=== PATIENT | male | born 1980 | race Caucasian/White ===

== ENCOUNTER 2019-04-28 11:48 | Emergency (ER) | payer MEDICAID ==
[2019-04-28] MEDS ORDERED: Zofran 4 MG/2 ML VIAL IV ONE (12:19)
[2019-04-28] MEDS ORDERED: Sodium Chloride 0.9% 1000 ML 1,000 ML IV STA (12:19)
[2019-04-28] MEDS ORDERED: Zofran 4 MG/2 ML VIAL ONE (12:26)
[2019-04-28] MEDS ORDERED: Sodium Chloride 0.9% 1000 ML 1,000 ML ONE (12:26)
[2019-04-28 13:06] LABS: BASOPHIL % 0.2 % (0.0-0.4); Basophil (Absolute #) 0.01 (0-0.4); Eosinophil % 2.7 % (0.00-5.0); Eosinophil (Absolute #) 0.13 (0-0.5); Granulocyte Absolute (ANC) 3.13 (1.4-6.9); Granulocytes % 65.5 % (36.0-66.0); Hematocrit 45.7 % (42-50); Hemoglobin 15.2 gm/dl (12.5-18.0); Lymphocyte (Absolute #) 1.19 (1.0-4.6); Lymphocytes % 24.9 % (24.0-44.0); Mean Cell Volume 91.8 fl (78-100); Mean Corpuscular Hemoglobin 30.5 pg (26-32); Mean Corpuscular Hgb Concent. 33.3 g/dl (32-36); Mean Platelet Volume 12.7 fl (6-9.5); Monocyte (Absolute #) 0.32 (0.0-1.3); Monocytes % 6.7 % (0.0-12.0); Platelet Count 160 K/mm3 (150-450); Red Blood Count 4.98 M/mm3 (4.1-5.6); White Blood Count 4.8 K/mm3 (4.0-10.5)
[2019-04-28 13:22] LABS: Appearance CLEAR (CLEAR); Bilirubin NEGATIVE (NEGATIVE); Blood NEGATIVE Ery/ul (0-5); Glucose NEGATIVE (NEGATIVE); Ketones TRACE (NEGATIVE); Leukocyte Esterase NEGATIVE (NEGATIVE); Mucus SLIGHT /HPF (NEGATIVE); Nitrite NEGATIVE (NEGATIVE); Protein,Urine Dip 30 (Negative); Specific Gravity 1.028 (1.005-1.025); Urobilinogen NEGATIVE mg/dL (0-1)
[2019-04-28 13:23] LABS: ALBUMIN 3.9 g/dL (3.5-5.0); ALKALINE PHOSPHATASE 59 U/L (38-126); ANION GAP 9.6 MEQ/L (5-15); BLOOD UREA NITROGEN 20 mg/dL (9-20); Bacteria NONE SEEN /HPF (NEGATIVE); CHLORIDE 106 mmol/L (98-107); Carbon Dioxide 31 mmol/L (22-30); Creatinine 1 1.02 mg/dL (0.66-1.25); Glucose 124 mg/dL (74-106); SGOT/AST 26 U/L (17-59); SGPT/ALT 23 U/L (0-50); SODIUM 143 mmol/L (137-145)
[2019-04-28 15:43] VITALS: BP 114/78; PULSE 72; O2SAT 94
--- NOTE | 2019-04-28 15:57 | ERPHSYRPT ---
- History of Present Illness Source: patient Exam Limitations: no limitations Patient Subjective Stated Complaint: vomiting Triage Nursing Assessment: Patient brought back to ED via w/c and transferred to bed per self. Patient A+O X 3. Patient's skin pale, cool and diaphoretic. Patient complains of vomiting X 1. Patient complains of nausea. Patient states he donated plasma at 0800 this am. Patient states he started feeling bad once he got home. Patient's abdomen round and soft with BS X4. Patient denies pain or discomfort. Physician History: Pt is a 38 y/o male that donated plasma today, and post procedure he syncopized. Pt states, was vomiting as well. He thought that he is having a seizure and came to the ER for a work up. Pt is not post ictal, and is A&O and conversive. No SOB or wheeze. No F/C/S. No dysuria, frequency or urgency. Pt did not eat or drink today. Timing/Duration: today Severity: mild Associated Symptoms: nausea, vomiting, syncope Allergies/Adverse Reactions: No Known Drug Allergies Allergy (Unverified 04/28/19 11:55) Home Medications: No Reportable Medications [No Reported Medications] 04/28/19 [History] Hx Influenza Vaccination/Date Given: No Hx Pneumococcal Vaccination/Date Given: No Immunizations Up to Date: Yes - Review of Systems Constitutional: No Fever, No Chills Eyes: No Symptoms Ears, Nose, & Throat: No Symptoms Respiratory: No Cough, No Dyspnea Cardiac: No Chest Pain, No Edema, No Syncope Abdominal/Gastrointestinal: No Abdominal Pain, No Nausea, No Vomiting, No Diarrhea Genitourinary Symptoms: No Dysuria Musculoskeletal: No Back Pain, No Neck Pain Neurological: No Dizziness, No Focal Weakness, No Sensory Changes - Past Medical History Pertinent Past Medical History: No Neurological History: No Pertinent History ENT History: No Pertinent History Cardiac History: No Pertinent History Respiratory History: No Pertinent History Endocrine Medical History: No Pertinent History Musculoskeletal History: No Pertinent History GI Medical History: No Pertinent History History: No Pertinent History Psycho-Social History: No Pertinent History Male Reproductive Disorders: No Pertinent History - Past Surgical History Past Surgical History: Yes Neuro Surgical History: No Pertinent History Cardiac: No Pertinent History Respiratory: No Pertinent History Gastrointestinal: No Pertinent History Genitourinary: No Pertinent History Musculoskeletal: Orthopedic Surgery Other Surgical History: Right thumb 1994 - Social History Smoking Status: Current every day smoker How long have you smoked: 15 years Exposure to second hand smoke: Yes Drug Use: none Patient Lives Alone: No - Nursing Vital Signs Nursing Vital Signs: Initial Vital Signs Temperature 97.5 F 04/28/19 11:55 Pulse Rate 76 04/28/19 11:55 Respiratory Rate 18 04/28/19 11:55 Blood Pressure 118/95 04/28/19 11:55 O2 Sat by Pulse Oximetry 93 L 04/28/19 11:55 Pain Scale Pain Intensity 0 - Physical Exam General Appearance: no apparent distress, alert Eye Exam: PERRL/EOMI, eyes nml inspection Ears, Nose, Throat Exam: normal ENT inspection, TMs normal, pharynx normal, moist mucous membranes Neck Exam: normal inspection, non-tender, supple, full range of motion Respiratory Exam: normal breath sounds, lungs clear, No respiratory distress Cardiovascular Exam: regular rate/rhythm, normal heart sounds, normal peripheral pulses Gastrointestinal/Abdomen Exam: soft, normal bowel sounds, No tenderness, No mass Back Exam: normal inspection, normal range of motion, No CVA tenderness, No vertebral tenderness Extremity Exam: normal inspection, normal range of motion, pelvis stable Neurologic Exam: alert, oriented x 3, cooperative, normal mood/affect, nml cerebellar function, nml station & gait, sensation nml, No motor deficits SpO2: 94 - Course Nursing assessment & vital signs reviewed: Yes Ordered Tests: Active Orders 24 hr Category Date Time Status CBC W DIFF Stat Lab 04/28/19 12:01 Completed CMP Stat Lab 04/28/19 12:01 Completed Lactic Acid Stat Lab 04/28/19 12:28 Completed UA W/RFX UR CULTURE Stat Lab 04/28/19 12:01 Completed Medication Summary Discontinued Medications Generic Name Dose Route Start Last Admin Trade Name Freq PRN Reason Stop Dose Admin Sodium Chloride 1,000 mls @ 999 mls/hr 04/28/19 12:19 04/28/19 13:29 Sodium Chloride 0.9% 1000 Ml IV 04/28/19 13:19 Infused .Q1H1M STA Infusion Sodium Chloride Confirm 04/28/19 12:26 Sodium Chloride 0.9% 1000 Ml Administered 04/28/19 12:27 Dose 1,000 mls @ ud .ROUTE .STK-MED ONE Ondansetron HCl 4 mg 04/28/19 12:19 04/28/19 12:28 Zofran 4 Mg/2 Ml Vial IV 04/28/19 12:20 4 mg STAT ONE Administration Ondansetron HCl Confirm 04/28/19 12:26 Zofran 4 Mg/2 Ml Vial Administered 04/28/19 12:27 Dose 4 mg .ROUTE .STK-MED ONE Lab/Rad Data: Laboratory Result Diagrams 04/28/19 12:01 04/28/19 12:01 Laboratory Results 04/28/19 04/28/19 04/28/19 Range/Units 12:28 12:01 12:01 WBC 4.8 (4.0-10.5) K/mm3 RBC 4.98 (4.1-5.6) M/mm3 Hgb 15.2 (12.5-18.0) gm/dl Hct 45.7 (42-50) % MCV 91.8 (78-100) fl MCH 30.5 (26-32) pg MCHC 33.3 (32-36) g/dl RDW 13.0 (11.5-14.0) % Plt Count 160 (150-450) K/mm3 MPV 12.7 H (6-9.5) fl Gran % 65.5 (36.0-66.0) % Eos # (Auto) 0.13 (0-0.5) Absolute Lymphs (auto) 1.19 (1.0-4.6) Absolute Monos (auto) 0.32 (0.0-1.3) Lymphocytes % 24.9 (24.0-44.0) % Monocytes % 6.7 (0.0-12.0) % Eosinophils % 2.7 (0.00-5.0) % Basophils % 0.2 (0.0-0.4) % Absolute Granulocytes 3.13 (1.4-6.9) Basophils # 0.01 (0-0.4) Sodium 143 (137-145) mmol/L Potassium 4.0 (3.5-5.1) mmol/L Chloride 106 (98-107) mmol/L Carbon Dioxide 31 H (22-30) mmol/L Anion Gap 9.6 (5-15) MEQ/L BUN 20 (9-20) mg/dL Creatinine 1.02 (0.66-1.25) mg/dL Estimated GFR > 60.0 ML/MIN Glucose 124 H (74-106) mg/dL Lactic Acid 1.3 (0.4-2.0) Calcium 9.0 (8.4-10.2) mg/dL Total Bilirubin 0.40 (0.2-1.3) mg/dL AST 26 (17-59) U/L ALT 23 (0-50) U/L Alkaline Phosphatase 59 (38-126) U/L Serum Total Protein 7.0 (6.3-8.2) g/dL Albumin 3.9 (3.5-5.0) g/dL Urine Color (YELLOW) Urine Appearance (CLEAR) Urine pH (5-6) Ur Specific [place] (1.005-1.025) Urine Protein (Negative) Urine Ketones (NEGATIVE) Urine Blood (0-5) Hua/ul Urine Nitrite (NEGATIVE) Urine Bilirubin (NEGATIVE) Urine Urobilinogen (0-1) mg/dL Ur Leukocyte Esterase (NEGATIVE) Urine WBC (Auto) (0-5) /HPF Urine RBC (Auto) (0-2) /HPF U Epithel Cells (Auto) (FEW) /HPF Urine Bacteria (Auto) (NEGATIVE) /HPF Other Casts (Auto) (NEGATIVE) /LPF Urine Mucus (Auto) (NEGATIVE) /HPF Urine Culture Reflexed (NO) Urine Glucose (NEGATIVE) mg/dL Slides for Path Review YES 04/28/19 Range/Units 12:01 WBC (4.0-10.5) K/mm3 RBC (4.1-5.6) M/mm3 Hgb (12.5-18.0) gm/dl Hct (42-50) % MCV (78-100) fl MCH (26-32) pg MCHC (32-36) g/dl RDW (11.5-14.0) % Plt Count (150-450) K/mm3 MPV (6-9.5) fl Gran % (36.0-66.0) % Eos # (Auto) (0-0.5) Absolute Lymphs (auto) (1.0-4.6) Absolute Monos (auto) (0.0-1.3) Lymphocytes % (24.0-44.0) % Monocytes % (0.0-12.0) % Eosinophils % (0.00-5.0) % Basophils % (0.0-0.4) % Absolute Granulocytes (1.4-6.9) Basophils # (0-0.4) Sodium (137-145) mmol/L Potassium (3.5-5.1) mmol/L Chloride (98-107) mmol/L Carbon Dioxide (22-30) mmol/L Anion Gap (5-15) MEQ/L BUN (9-20) mg/dL Creatinine (0.66-1.25) mg/dL Estimated GFR ML/MIN Glucose (74-106) mg/dL Lactic Acid (0.4-2.0) Calcium (8.4-10.2) mg/dL Total Bilirubin (0.2-1.3) mg/dL AST (17-59) U/L ALT (0-50) U/L Alkaline Phosphatase (38-126) U/L Serum Total Protein (6.3-8.2) g/dL Albumin (3.5-5.0) g/dL Urine Color YELLOW (YELLOW) Urine Appearance CLEAR (CLEAR) Urine pH 5.0 (5-6) Ur Specific [place] 1.028 (1.005-1.025) Urine Protein 30 (Negative) Urine Ketones TRACE (NEGATIVE) Urine Blood NEGATIVE (0-5) Hua/ul Urine Nitrite NEGATIVE (NEGATIVE) Urine Bilirubin NEGATIVE (NEGATIVE) Urine Urobilinogen NEGATIVE (0-1) mg/dL Ur Leukocyte Esterase NEGATIVE (NEGATIVE) Urine WBC (Auto) NONE (0-5) /HPF Urine RBC (Auto) NONE (0-2) /HPF U Epithel Cells (Auto) NONE (FEW) /HPF Urine Bacteria (Auto) NONE SEEN (NEGATIVE) /HPF Other Casts (Auto) NEGATIVE (NEGATIVE) /LPF Urine Mucus (Auto) SLIGHT (NEGATIVE) /HPF Urine Culture Reflexed NO (NO) Urine Glucose NEGATIVE (NEGATIVE) mg/dL Slides for Path Review - Progress Progress: improved Progress Note: 04/28/19 15:58 Pt was seen and examined. Lab work were all normal. UA is normal. IVF were given as well as Zofran. Pt is improved and is ready for d/c. He should f/u with his PCP. Will see patient in: office Counseled pt/family regarding: need for follow-up - Departure Departure Disposition: Home Clinical Impression: Syncope Condition: Stable Critical Care Time: No Referrals: DOCTOR,NO FAMILY [Primary Care Provider] - Additional Instructions: Pt should keep himself hydrated. He should f/u with PCP.
== END 2019-04-28 16:04 | disposition home or self-care (01) ==
LOC: ED 11:48
DX: R55 Syncope and collapse (principal)
CPT/HCPCS: 36000; 36415; 80053; 81001; 83605; 85025; 96360; 96374; 99284; J2405

== ENCOUNTER 2019-06-06 15:31 | Emergency (ER) | payer MEDICAID | END 2019-06-06 16:51 | disposition home or self-care (01) | LOC: ED 15:31 ==

== ENCOUNTER 2019-07-02 12:12 | Emergency (ER) | payer MEDICAID, OTHER ==
--- NOTE | 2019-07-02 12:38 | ERPHSYRPT ---
- History of Present Illness Source: patient, family Exam Limitations: no limitations Physician History: patient has a chronic right knee pain for more than 8 years. He states that he has had it aspirated few times. worsening of the right knee pain with swelling since yesterday. Patient thinks it is the fluid. Pain gets worse with movement of the right knee. There's little bit of a progressed. Patient normally takes ibuprofen but cannot take it right now Method of Injury: unknown Occurred: yesterday Quality: constant Severity of Pain-Max: moderate Severity of Pain-Current: severe Lower Extremities Pain: knee: right Modifying Factors: Improves With: movement, rest Associated Symptoms: unable to bear weight Allergies/Adverse Reactions: No Known Drug Allergies Allergy (Verified 07/02/19 12:29) Hx Tetanus, Diphtheria Vaccination/Date Given: Yes Hx Influenza Vaccination/Date Given: No Hx Pneumococcal Vaccination/Date Given: No - Review of Systems Constitutional: No Fever, No Chills Eyes: No Symptoms Ears, Nose, & Throat: No Symptoms Respiratory: No Cough, No Dyspnea Cardiac: No Chest Pain, No Edema, No Syncope Abdominal/Gastrointestinal: No Abdominal Pain, No Nausea, No Vomiting, No Diarrhea Genitourinary Symptoms: No Dysuria Musculoskeletal: Joint Pain, Joint Swelling, Other (right knee-painful, tender, swollen, painful range of motion), No Back Pain, No Neck Pain Skin: No Rash Neurological: No Dizziness, No Focal Weakness, No Sensory Changes Psychological: No Symptoms Endocrine: No Symptoms All Other Systems: Reviewed and Negative - Past Medical History Pertinent Past Medical History: No Neurological History: No Pertinent History ENT History: No Pertinent History Cardiac History: No Pertinent History Respiratory History: No Pertinent History Endocrine Medical History: No Pertinent History Musculoskeletal History: No Pertinent History GI Medical History: No Pertinent History History: No Pertinent History Psycho-Social History: No Pertinent History Male Reproductive Disorders: No Pertinent History - Past Surgical History Past Surgical History: Yes Neuro Surgical History: No Pertinent History Cardiac: No Pertinent History Respiratory: No Pertinent History Gastrointestinal: No Pertinent History Genitourinary: No Pertinent History Musculoskeletal: Orthopedic Surgery Other Surgical History: Right thumb 1995 - Social History Smoking Status: Current every day smoker How long have you smoked: 15 years Exposure to second hand smoke: Yes Drug Use: none Patient Lives Alone: No - Nursing Vital Signs Nursing Vital Signs: Initial Vital Signs Temperature 98.8 F 07/02/19 12:20 Pulse Rate 92 H 07/02/19 12:20 Respiratory Rate 16 07/02/19 12:20 Blood Pressure 141/86 07/02/19 12:20 O2 Sat by Pulse Oximetry 96 07/02/19 12:20 Pain Scale Pain Intensity 8 - Physical Exam General Appearance: alert Eyes, Ears, Nose, Throat Exam: moist mucous membranes Neck Exam: non-tender, supple Cardiovascular/Respiratory Exam: chest non-tender, normal breath sounds, regular rate/rhythm, no respiratory distress Gastrointestinal/Abdominal Exam: non-tender, guarding Back Exam: normal inspection, No vertebral tenderness Knees Exam: right knee: joint effusion, pain, soft tissue tenderness, swelling ( and and), other (right knee-painful, tender, swollen, painful range of motion, normal distal NV function), bilateral knee: no evidence of injury (is a) Neuro/Tendon Exam: normal sensation, normal motor functions Mental Status Exam: alert, oriented x 3, cooperative Skin Exam: normal color, warm, dry Procedures - Additional Procedures Progress: right knee aspiration done under aseptic precaution. 60 mL of fluid aspirated and sent for examination. I injected the final count of 1% lidocaine and a 10 mg of Decadron in the right knee. Patient tolerated procedure well. No complications - Course Nursing assessment & vital signs reviewed: Yes Ordered Tests: Active Orders 24 hr Category Date Time Status Crutches STAT Care 07/02/19 14:25 Active Medication Summary Discontinued Medications Generic Name Dose Route Start Last Admin Trade Name Morgan PRN Reason Stop Dose Admin Dexamethasone Sodium Phosphate 10 mg 07/02/19 14:10 07/02/19 14:27 Decadron 4 Mg Inj IJ 07/02/19 14:11 10 mg STAT ONE Administration Dexamethasone Sodium Phosphate Confirm 07/02/19 14:10 Decadron 10mg Inj. Administered 07/02/19 14:11 Dose 10 mg .ROUTE .STK-MED ONE Lidocaine HCl 5 ml 07/02/19 14:10 07/02/19 14:25 Xylocaine 1% Hcl 20 Ml Mdv IJ 07/02/19 14:11 5 ml STAT ONE Administration Lidocaine HCl Confirm 07/02/19 14:10 Xylocaine 1% Hcl 20 Ml Mdv Administered 07/02/19 14:11 Dose 1 ml .ROUTE .STK-MED ONE - Progress Progress: improved Discussed with DrGeorgina: Roberta Will see patient in: office Counseled pt/family regarding: need for follow-up (need to see ortho LELA) - Departure Departure Disposition: Home Clinical Impression: Knee internal derangement Condition: Good Critical Care Time: No Referrals: BISHOP PEMBERTON MD [Primary Care Provider] - Instructions: Knee Sprain (DC), Knee Pain (DC) Additional Instructions: See ortho LELA Forms: Work/School Release Form
[2019-07-02 14:04] VITALS: BP 130/79; PULSE 87; O2SAT 98
[2019-07-02] MEDS ORDERED: DECADRON 10MG INJ. ONE (14:10)
[2019-07-02] MEDS ORDERED: XYLOCAINE 1% HCL 20 ML MDV IJ ONE (14:10)
[2019-07-02] MEDS ORDERED: XYLOCAINE 1% HCL 20 ML MDV ONE (14:10)
[2019-07-02] MEDS ORDERED: Decadron 4 MG INJ IJ ONE (14:10)
== END 2019-07-02 15:01 | disposition home or self-care (01) ==
LOC: ED 12:12
DX: M23.91 Unspecified internal derangement of right knee (principal); M25.561 Pain in right knee
CPT/HCPCS: 20610; 89050; 89051; 89060; 96372; 99284; J1100; L1830

== ENCOUNTER 2019-08-13 21:47 | Emergency (ER) | payer OTHER ==
[2019-08-13 22:00] VITALS: O2SAT 97
--- NOTE | 2019-08-13 22:00 | ERPHSYRPT ---
- History of Present Illness Time Seen by Provider: 08/13/19 21:50 Historian: patient Exam Limitations: no limitations Physician History: Patient has lower left anterior chest pain after a mild injury 4 days ago after reaching to grab something, causing him to fall onto his truck bed onto the left chest. Timing/Duration: day(s) (4) Activities at Onset: activity Quality: sharpness Location: other (lower anterior lateral chest wall) Chest Pain Radiation: no radiation Severity of Pain-Max: moderate Severity of Pain-Current: moderate Modifying Factors: Improves With: rest. Worsens With: breathing, movement, palpation, change in position Associated Symptoms: No nausea, No vomiting, No palpitations, No heartburn, No abdominal pain, No shortness of breath, No cough, No hurts to breathe, No diaphoresis, No chills, No fever, No fatigue, No weakness, No swelling/lump in chest, No syncope, No rash, No headache, No dizziness, No edema, No back pain Prior Chest Pain/Cardiac Workup: no prior chest pain Nitro Today/Relief: no nitro taken today Aspirin Treatment Today: no aspirin today Allergies/Adverse Reactions: No Known Drug Allergies Allergy (Verified 08/13/19 22:00) Hx Tetanus, Diphtheria Vaccination/Date Given: Yes Hx Influenza Vaccination/Date Given: No Hx Pneumococcal Vaccination/Date Given: No - Review of Systems Constitutional: No Fever, No Chills, No Fatigue Eyes: No Eye Pain, No Vision Changes Ears, Nose, & Throat: No Mouth Swelling, No Throat Swelling, No Painful Swallowing Respiratory: No Cough, No Dyspnea, No Dyspnea on Exertion (YING) Cardiac: No Edema, No Palpitations, No Syncope Abdominal/Gastrointestinal: No Abdominal Pain, No Nausea, No Vomiting, No Hematemesis, No Hematochezia, No Melena Genitourinary Symptoms: No Dysuria, No Frequency, No Hematuria, No Flank Pain Musculoskeletal: No Back Pain, No Neck Pain Skin: No Pruritis, No Rash Neurological: No Focal Weakness, No Headache, No Lethargy, No Parasthesia Psychological: No Anxiety Endocrine: No Polydipsia, No Excessive Sweating Hematologic/Lymphatic: No Easy Bleeding, No Easy Bruising All Other Systems: Reviewed and Negative - Past Medical History Pertinent Past Medical History: No Neurological History: No Pertinent History ENT History: No Pertinent History Cardiac History: No Pertinent History Respiratory History: No Pertinent History Endocrine Medical History: No Pertinent History Musculoskeletal History: No Pertinent History GI Medical History: No Pertinent History History: No Pertinent History Psycho-Social History: No Pertinent History Male Reproductive Disorders: No Pertinent History Other Medical History: right knee swelling - Past Surgical History Past Surgical History: Yes Neuro Surgical History: No Pertinent History Cardiac: No Pertinent History Respiratory: No Pertinent History Gastrointestinal: No Pertinent History Genitourinary: No Pertinent History Musculoskeletal: Orthopedic Surgery Other Surgical History: Right thumb 1994 - Social History Smoking Status: Current every day smoker How long have you smoked: 15 years Exposure to second hand smoke: Yes Drug Use: none Patient Lives Alone: No - Nursing Vital Signs Nursing Vital Signs: Initial Vital Signs Temperature 98 F 08/13/19 21:51 Respiratory Rate 82 H 08/13/19 21:51 Blood Pressure 151/82 08/13/19 21:51 O2 Sat by Pulse Oximetry 97 08/13/19 21:51 Pain Scale Pain Intensity 8 - Physical Exam General Appearance: no apparent distress, alert Eye Exam: PERRL/EOMI, eyes nml inspection, No scleral icterus Ears, Nose, Throat Exam: pharynx normal, moist mucous membranes, No pharyngeal erythema, No tonsillar exudate Neck Exam: normal inspection, non-tender, supple, full range of motion, No meningismus, No mass, No Brudzinski, No limited range of motion, No lymphadenopathy, No midline tenderness Respiratory Exam: normal breath sounds, chest tenderness (point tenderness to the left lower anterior chest, no creptious or subcutaneous emphysema appreciated), lungs clear, airway intact, No respiratory distress, No accessory muscle use, No prolonged expirations, No crackles/rales, No rhonchi, No wheezing , No stridor Cardiovascular Exam: regular rate/rhythm, normal heart sounds, normal peripheral pulses, capillary refill <2 sec Gastrointestinal/Abdomen Exam: soft, normal bowel sounds, No tenderness, No distention, No guarding, No ecchymosis, No pulsatile mass, No rebound Back Exam: normal inspection, normal range of motion, No CVA tenderness, No vertebral tenderness, No rash Extremity Exam: normal inspection, normal range of motion, pelvis stable, No contusions, No deformities, No lacerations, No penetrations, No marcel's sign, No swelling Neurologic Exam: alert, oriented x 3, cooperative, saw man II-XII nml as tested, normal mood/affect, nml cerebellar function, sensation nml, No motor deficits Skin Exam: normal color, warm, dry, No rash, No petechiae, No cyanosis SpO2 Interpretation: normal O2 Delivery: Room Air - Radiology Exams Chest X-ray Interpretation: Interpreted by me, Reviewed by me, Negative, No Fracture, No Pneumonia, No Pneumothorax, Nml Alignment, Nml Heart Size, No Infiltrates, Nml Mediastinum Ordered Tests: Active Orders 24 hr Category Date Time Status CHEST 1 VIEW (PORTABLE) Stat Exams 08/13/19 22:00 Taken Incentive Spirometry ONCE RT 08/13/19 22:01 Completed Medication Summary Discontinued Medications Generic Name Dose Route Start Last Admin Trade Name Morgan PRN Reason Stop Dose Admin Hydrocodone Bitart/Acetaminophen 1 tab 08/13/19 22:01 08/13/19 22:06 [place] 5/325 Mg PO 08/13/19 22:02 1 tab STAT ONE Administration Hydrocodone Bitart/Acetaminophen Confirm 08/13/19 22:04 [place] 5/325 Mg Administered 08/13/19 22:05 Dose 1 tab .ROUTE .STK-MED ONE Ketorolac Tromethamine 60 mg 08/13/19 22:02 08/13/19 22:05 Toradol 30 Mg Injection IM 08/13/19 22:03 60 mg STAT ONE Administration Ketorolac Tromethamine Confirm 08/13/19 22:04 Toradol 30 Mg Injection Administered 08/13/19 22:05 Dose 30 mg .ROUTE .STK-MED ONE Ketorolac Tromethamine Confirm 08/13/19 22:07 Toradol 30 Mg Injection Administered 08/13/19 22:08 Dose 30 mg .ROUTE .STK-MED ONE - Progress Progress: improved Air Movement: good Progress Note: 08/13/19 22:31 Pain has decreased from an 8/10 to a 5/10. Equal breath sounds bilaterally, no respiratory distress. 08/13/19 22:32 Blood pressure improved to normal range with better pain control. Blood Culture(s) Obtained: No Antibiotics given: No Counseled pt/family regarding: lab results, diagnosis, need for follow-up, rad results - Departure Departure Disposition: Home Clinical Impression: Elevated blood pressure reading without diagnosis of hypertension Contusion of left chest wall Qualifiers: Encounter type: initial encounter Qualified Code(s): S20.212A - Contusion of left front wall of thorax, initial encounter Condition: Good Critical Care Time: No Referrals: BISHOP PEMBERTON MD [Primary Care Provider] - Follow Up with PCP/3 days Instructions: Bruised Rib, DASH Diet Prescriptions: Etodolac 400 mg [Lodine 400 mg] 400 mg PO BID PRN PRN #20 tablet PRN Reason: Pain
[2019-08-13] MEDS ORDERED: NORCO 5/325 MG PO ONE (22:01)
[2019-08-13] MEDS ORDERED: TORAdol 30 mg Injection IM ONE (22:02)
[2019-08-13] MEDS ORDERED: TORAdol 30 mg Injection ONE ×2 (22:04→22:07)
[2019-08-13] MEDS ORDERED: NORCO 5/325 MG ONE (22:04)
[2019-08-13 22:32] VITALS: BP 114/80; PULSE 76
--- NOTE | 2019-08-14 07:51 | XRAY ---
Indication: Left-sided pain following injury 4 days ago. Comparison: None Portable chest demonstrates normal heart and lungs. Bony thorax intact.
== END 2019-08-13 22:47 | disposition home or self-care (01) ==
LOC: ED 21:47
DX: S20.212A Contusion of left front wall of thorax, initial encounter (principal); R03.0 Elevated blood-pressure reading, without diagnosis of hypertension; W01.198A Fall on same level from slipping, tripping and stumbling with subsequent striking against other object, initial encounter
CPT/HCPCS: 71045; 96372; 99284; 99291; J1885; A9270-GY

== ENCOUNTER 2020-03-12 21:12 | Emergency (ER) | payer OTHER ==
[2020-03-12] MEDS ORDERED: Pepcid 20 MG PO ONE (21:57)
[2020-03-12] MEDS ORDERED: BENADRYL 50 MG/ML IM ONE (21:57)
[2020-03-12] MEDS ORDERED: solu-MEDROL 125 MG IM ONE (21:57)
--- NOTE | 2020-03-12 22:11 | ERPHSYRPT ---
- History of Present Illness Time Seen by Provider: 03/12/20 21:44 Source: patient Exam Limitations: no limitations Patient Subjective Stated Complaint: L cheek/jaw swelling Triage Nursing Assessment: pt to ED c/o L jaw and cheek swelling, states was weed eating and had a clam come up and hit him in the face. swelling began afterwards. allergic to shellfish. no diff breathing or swallowing noted. no swelling in throat. Physician History: 39 years old male allergic to shellfish was weed eating when a clam hit on the left face earlier this afternoon all later on started to have some swelling itching and burning sensation on the left side of the face with heaviness. Patient reports having similar symptoms with exposure to shellfish and related things in the past. Denies any tongue swelling, scratchiness in the throat, choking sensation or difficulty breathing. Timing/Duration: today, sudden, worse Severity: moderate Modifying Factors: Improves With: nothing Associated Symptoms: denies symptoms Allergies/Adverse Reactions: shellfish derived Allergy (Mild, Verified 03/12/20 21:47) Difficulty Swallowing swollen tongue Home Medications: Dextroamphetamine/Amphetamine [Adderall 10 mg Tablet] 10 mg PO BID PRN 03/12/20 [History] Hx Tetanus, Diphtheria Vaccination/Date Given: No Hx Influenza Vaccination/Date Given: No Hx Pneumococcal Vaccination/Date Given: No Immunizations Up to Date: No Travel Risk - International Travel Have you traveled outside of the country in past 3 weeks: No Have you or anyone close to you been diagnosed with or: No Do your reside in a community with a known COVID-19 case?: Yes If Yes where:: [place] - Coronavirus Screening Has patient experienced Coronavirus symptoms: No - Review of Systems Constitutional: No Symptoms Eyes: No Symptoms Ears, Nose, & Throat: Other Respiratory: No Symptoms Cardiac: No Symptoms Abdominal/Gastrointestinal: No Symptoms Genitourinary Symptoms: No Symptoms Musculoskeletal: No Symptoms Skin: Rash Neurological: No Symptoms Psychological: No Symptoms Endocrine: No Symptoms Hematologic/Lymphatic: No Symptoms Immunological/Allergic: No Symptoms - Past Medical History Pertinent Past Medical History: No Neurological History: No Pertinent History ENT History: No Pertinent History Cardiac History: No Pertinent History Respiratory History: No Pertinent History Endocrine Medical History: No Pertinent History Musculoskeletal History: No Pertinent History GI Medical History: No Pertinent History History: No Pertinent History Psycho-Social History: No Pertinent History Male Reproductive Disorders: No Pertinent History Other Medical History: right knee swelling - Past Surgical History Past Surgical History: Yes Neuro Surgical History: No Pertinent History Cardiac: No Pertinent History Respiratory: No Pertinent History Gastrointestinal: No Pertinent History Genitourinary: No Pertinent History Musculoskeletal: Orthopedic Surgery Male Surgical History: No Pertinent History Other Surgical History: Right thumb 1994 - Social History Smoking Status: Current every day smoker How long have you smoked: 15 years Exposure to second hand smoke: Yes Drug Use: none Patient Lives Alone: No - Nursing Vital Signs Nursing Vital Signs: Initial Vital Signs Temperature 97.9 F 03/12/20 21:36 Pulse Rate 78 03/12/20 21:36 Respiratory Rate 18 03/12/20 21:36 Blood Pressure 143/85 03/12/20 21:36 O2 Sat by Pulse Oximetry 98 03/12/20 21:36 Pain Scale Pain Intensity 3 - Physical Exam General Appearance: no apparent distress Eye Exam: PERRL/EOMI, eyes nml inspection Ears, Nose, Throat Exam: pharynx normal, moist mucous membranes, other (Swollen left cheek as compared to right but blanchable. Mildly warm. Nontender. No gum swelling. No swelling inside the mouth. 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, normal mood/affect Skin Exam: rash SpO2 Interpretation: normal SpO2: 100 O2 Delivery: Room Air - Course Nursing assessment & vital signs reviewed: Yes Ordered Tests: Active Orders 24 hr Category Date Time Status Isolation, Initiate & Maintain Q12H Care 03/12/20 21:45 Active Medication Summary Discontinued Medications Generic Name Dose Route Start Last Admin Trade Name Freq PRN Reason Stop Dose Admin Diphenhydramine HCl 50 mg 03/12/20 21:57 Benadryl 50 Mg/Ml IM 03/12/20 21:58 STAT ONE Diphenhydramine HCl 25 mg 03/12/20 22:26 Benadryl 50 Mg/Ml IV 03/12/20 22:27 STAT ONE Diphenhydramine HCl Confirm 03/12/20 22:54 Benadryl 50 Mg/Ml Administered 03/12/20 22:55 Dose 50 mg .ROUTE .STK-MED ONE Famotidine 40 mg 03/12/20 21:57 Pepcid 20 Mg PO 03/12/20 21:58 STAT ONE Famotidine Confirm 03/12/20 22:54 Pepcid 20 Mg Vial Administered 03/12/20 22:55 Dose 40 mg IV .STK-MED ONE Famotidine Confirm 03/12/20 22:55 Pepcid 20 Mg Administered 03/12/20 22:56 Dose 40 mg .ROUTE .STK-MED ONE Methylprednisolone Sodium Succinate 125 mg 03/12/20 21:57 Solu-Medrol 125 Mg IM 03/12/20 21:58 STAT ONE Methylprednisolone Sodium Succinate Confirm 03/12/20 22:55 Solu-Medrol 125 Mg Administered 03/12/20 22:56 Dose 125 mg .ROUTE .STK-MED ONE - Progress Progress: improved Progress Note: I believe patient has allergic reaction to wheat-containing shellfish related things. He is given Benadryl/Solu-Medrol/Pepcid, on reevaluation feeling better. No tongue swelling or any other respiratory symptoms. We will continue with steroid Benadryl and Pepcid to go home. Discussed signs symptoms of worsening needing return to ER which he seems understanding. Stable for discharge. 03/12/20 23:16 Counseled pt/family regarding: diagnosis, need for follow-up - Departure Departure Disposition: Home Clinical Impression: Allergic reaction Qualifiers: Encounter type: initial encounter Qualified Code(s): T78.40XA - Allergy, unspecified, initial encounter Condition: Stable Critical Care Time: No Referrals: BISHOP PEMBERTON MD [Primary Care Provider] - (1 to 2 days for reevaluation) Instructions: Adverse Drug Reactions, Adult (DC) Additional Instructions: Avoid shellfish and related things. Take Benadryl as needed. Follow-up with primary care for reevaluation. Return to ER for worsening swelling, difficulty breathing/choking sensation etc. Prescriptions: Diphenhydramine HCl 25 mg [Benadryl 25 mg Capsule] 25 mg PO Q4H PRN PRN # 20 capsule PRN Reason: Allergies Famotidine 20 mg [Pepcid 20 MG] 20 mg PO BID #10 tablet Prednisone 50 mg PO DAILY #5 tablet
[2020-03-12] MEDS ORDERED: BENADRYL 50 MG/ML IV ONE (22:26)
[2020-03-12] MEDS ORDERED: BENADRYL 50 MG/ML ONE (22:54)
[2020-03-12] MEDS ORDERED: Pepcid 20 MG VIAL IV ONE (22:54)
[2020-03-12] MEDS ORDERED: solu-MEDROL 125 MG ONE (22:55)
[2020-03-12] MEDS ORDERED: Pepcid 20 MG ONE (22:55)
[2020-03-12 23:25] VITALS: BP 124/77; PULSE 74; O2SAT 99
== END 2020-03-13 00:15 | disposition home or self-care (01) ==
LOC: ED 21:12
DX: T78.40XA Allergy, unspecified, initial encounter (principal); R60.9 Edema, unspecified; Z72.0 Tobacco use
CPT/HCPCS: 96372; 96374; 99284; J1200; J2930; A9270-GY

== ENCOUNTER 2020-07-05 21:06 | Emergency (ER) | payer OTHER ==
--- NOTE | 2020-07-05 21:14 | ERPHSYRPT ---
- History of Present Illness Time Seen by Provider: 07/05/20 21:14 Source: patient Exam Limitations: no limitations Physician History: This is a 39-year-old white male who twisted his left ankle in a hole while he was mowing his yard at home approximately 5 days ago. The pain has persisted. He is able to bear weight but it hurts to do so. Patient has crutches and has been wearing a [place] wrap. Method of Injury: twisted Occurred: days ago (5) Quality: aching, throbbing Severity of Pain-Max: moderate Severity of Pain-Current: moderate Lower Extremities Pain: ankle: left Modifying Factors: Improves With: movement Associated Symptoms: other (Hurts to bear weight.) Allergies/Adverse Reactions: shellfish derived Allergy (Mild, Verified 07/05/20 21:25) Difficulty Swallowing swollen tongue Home Medications: Dextroamphetamine/Amphetamine [Adderall 10 mg Tablet] 10 mg PO BID PRN 03/12/20 [History] Hx Tetanus, Diphtheria Vaccination/Date Given: No Hx Influenza Vaccination/Date Given: No Hx Pneumococcal Vaccination/Date Given: No Travel Risk - International Travel Have you traveled outside of the country in past 3 weeks: No - Coronavirus Screening Are you exhibiting any of the following symptoms?: No Close contact with a COVID-19 positive Pt in past 14-21 Days: No - Review of Systems Constitutional: No Symptoms Eyes: No Symptoms Ears, Nose, & Throat: No Symptoms Respiratory: No Symptoms Cardiac: No Symptoms Abdominal/Gastrointestinal: No Symptoms Genitourinary Symptoms: No Symptoms Musculoskeletal: Injury (Ankle on the left) Skin: No Symptoms Neurological: No Symptoms Psychological: No Symptoms Endocrine: No Symptoms Hematologic/Lymphatic: No Symptoms Immunological/Allergic: No Symptoms All Other Systems: Reviewed and Negative - Past Medical History Pertinent Past Medical History: No Neurological History: No Pertinent History ENT History: No Pertinent History Cardiac History: No Pertinent History Respiratory History: No Pertinent History Endocrine Medical History: No Pertinent History Musculoskeletal History: No Pertinent History GI Medical History: No Pertinent History History: No Pertinent History Psycho-Social History: No Pertinent History Male Reproductive Disorders: No Pertinent History Other Medical History: right knee swelling - Past Surgical History Past Surgical History: Yes Neuro Surgical History: No Pertinent History Cardiac: No Pertinent History Respiratory: No Pertinent History Gastrointestinal: No Pertinent History Genitourinary: No Pertinent History Musculoskeletal: Orthopedic Surgery Male Surgical History: No Pertinent History Other Surgical History: Right thumb 1994 - Social History Smoking Status: Current every day smoker How long have you smoked: 15 years Exposure to second hand smoke: Yes Drug Use: none Patient Lives Alone: No - Nursing Vital Signs Nursing Vital Signs: Initial Vital Signs Temperature 97.8 F 07/05/20 21:11 Pulse Rate 88 07/05/20 21:11 Respiratory Rate 18 07/05/20 21:11 Blood Pressure 133/80 07/05/20 21:11 O2 Sat by Pulse Oximetry 96 07/05/20 21:11 Pain Scale Pain Intensity 7 - Physical Exam General Appearance: no apparent distress, alert, anxiety Eyes, Ears, Nose, Throat Exam: normal ENT inspection, moist mucous membranes Neck Exam: normal inspection, non-tender, supple, full range of motion Cardiovascular/Respiratory Exam: chest non-tender, no respiratory distress Gastrointestinal/Abdominal Exam: non-tender Back Exam: normal inspection, normal range of motion, No CVA tenderness, No vertebral tenderness Hips Exam: bilateral: non-tender, normal inspection, normal range of motion, no evidence of injury Legs Exam: bilateral leg: non-tender, normal inspection, normal range of motion, no evidence of injury Knees Exam: bilateral knee: non-tender, normal inspection, normal range of motion, no evidence of injury Ankle Exam: left ankle: soft tissue tenderness, swelling (Bilateral malleolus) Foot Exam: bilateral foot: non-tender, normal inspection, normal range of motion, no evidence of injury Neuro/Tendon Exam: normal sensation, normal motor functions, normal tendon functions Mental Status Exam: alert, oriented x 3, cooperative Skin Exam: normal color, warm, dry SpO2 Interpretation: normal O2 Delivery: Room Air - Course Nursing assessment & vital signs reviewed: Yes Ordered Tests: Active Orders 24 hr Category Date Time Status ANKLE (3 VIEWS) Stat Exams 07/05/20 21:16 Taken - Progress Progress: pain not gone completely, re-examined Progress Note: 07/05/20 21:58 X-ray of left ankle reveals no acute fracture or dislocation. Counseled pt/family regarding: diagnosis, need for follow-up, rad results - Departure Departure Disposition: Home Clinical Impression: Left ankle sprain Condition: Stable Critical Care Time: No Referrals: BISHOP PEMBERTON MD [Primary Care Provider] - (podiatry clinic left ankle sprain) Additional Instructions: Ice pack to area 3 times a day. Tylenol and ibuprofen as discussed for pain control. Follow-up in the following [facility] podiatry clinic.
[2020-07-05 22:38] VITALS: BP 126/64; PULSE 77; O2SAT 98
--- NOTE | 2020-07-06 11:30 | XRAY ---
Exam: 3 views of the left ankle from 07/05/2020. Comparison: None. Indication: Patient tripped in a hole; complains of bilateral malleolar ankle pain as well as anterior left ankle pain. Findings: AP, oblique, and radiographs of the left ankle were obtained. I see no acute fracture of the distal left tibia or fibula. The left ankle mortise is well-preserved and appears uniform. No anterior left ankle joint effusion is seen. I note a smooth, oval-shaped 7.7 mm calcification adjacent to the inferior margin of the medial malleolus. This appears old and may represent an accessory ossicle or old avulsion injury. There is mild soft tissue swelling about the left ankle joint. I also see some mild soft tissue swelling overlying the dorsal aspect of the left hindfoot on the lateral radiograph. A minimal posterior calcaneal enthesophyte is seen. The bones of the left hindfoot appear intact. The subtalar joint appears normal. Impression: 1. No acute left ankle fracture or dislocation is seen. 2. Mild soft tissue swelling is seen about the left ankle and dorsal aspect of the left hindfoot. 3. The left ankle mortise appears unremarkable.
== END 2020-07-05 22:38 | disposition home or self-care (01) ==
LOC: ED 21:06
DX: S93.402A Sprain of unspecified ligament of left ankle, initial encounter (principal); X50.1XXA Overexertion from prolonged static or awkward postures, initial encounter; Y93.9 Activity, unspecified; Y92.9 Unspecified place or not applicable
CPT/HCPCS: 73610; 99283